=== PATIENT | female | born 2000 | race Caucasian/White ===

== ENCOUNTER 2019-10-14 05:54 | Emergency (ER) | payer OTHER, SELFPAY ==
[2019-10-14] MEDS ORDERED: Lidocaine 1% PF 5 ML VIAL ONE (06:08)
--- NOTE | 2019-10-14 07:46 | RAD ---
EXAM: 3 views of the left small finger HISTORY: Avulsion injury to the small finger nail after crush injury COMPARISON: None FINDINGS: There is no evidence of acute fracture or dislocation. Mild distal soft tissue swelling is seen. No degenerative changes are present. No radiopaque foreign body is seen. IMPRESSION: No evidence of acute osseous abnormality.
== END 2019-10-14 06:50 | disposition home or self-care (01) ==
LOC: ERS 05:54
DX: S61.317A Laceration without foreign body of left little finger with damage to nail, initial encounter (principal); W23.0XXA Caught, crushed, jammed, or pinched between moving objects, initial encounter
CPT/HCPCS: 11760